=== PATIENT | male | born 1960 | race Two or more races ===

== ENCOUNTER 2025-03-07 08:53 | Outpatient (CLI) | payer MEDICARE, BC ==
[2025-03-07 11:05] LABS: PLATELET COUNT (AUTO) 180 K/uL (150-450); RED BLOOD CELL COUNT(AUTO) 4.76 MIL/uL (4.5-6.0); RED CELL DISTRIBUTION WIDTH 14.1 % (11.5-15.0); WHITE BLOOD COUNT (AUTO) 5.1 K/uL (4.3-11.0)
[2025-03-07 11:11] LABS: APPEARANCE,URINE CLEAR (CLEAR); BLOOD, URINE 2+ Ery/uL (NEGATIVE); LEUKOCYTE ESTERASE ,URINE NEGATIVE (NEGATIVE); NITRITE, URINE NEGATIVE (NEGATIVE); UGLUCOSE NEGATIVE (NEGATIVE)
[2025-03-07 11:12] LABS: ERYTHROCYTE SEDIMENTATION RATE 3 MM/HR (0-20)
[2025-03-07 11:24] LABS: URINE TOTAL PROTEIN 16.5 mg/dL (0-11.9)
[2025-03-07 11:27] LABS: ASPARTATE AMINOTRANSFERASE 20 U/L (15-37); CALCIUM, SERUM 8.9 mg/dL (8.5-10.1); CREATININE 1.2 mg/dL (0.6-1.3); PHOSPHORUS 3.0 mg/dL (2.5-4.9); SODIUM SERUM 142 mmol/L (136-145); TOTAL PROTEIN, SERUM 7.6 g/dL (6.4-8.2); UREA NITROGEN, BLOOD 17 mg/dL (7-18)
[2025-03-07 11:36] LABS: ADD URINE CULTURE YES; COARSE GRANULAR CASTS,URINE Few /LPF (None Seen); SQUAMOUS EPITHELIAL CELL,UR Few /HPF (None Seen)
[2025-03-08 05:10] LABS: VIT D, 25-HYDROXY 40.8 ng/mL (30.0-100.0)
[2025-03-08 08:11] LABS: ALBUMIN, URINE 25.4 ug/mL (Not Estab.); FOLIC ACID 6.9 ng/mL (>3.0); PTH, INTACT 18 pg/mL (15-65)
[2025-03-08 10:07] LABS: COMPLEMENT C3, SERUM 117 mg/dL (82-167); COMPLEMENT C4, SERUM 23 mg/dL (12-38); IMMUNOGLOBULIN A, SERUM 128 mg/dL (61-437); IMMUNOGLOBULIN M, SERUM 76 mg/dL (20-172)
== END 2025-03-07 23:59 | disposition home or self-care (01) ==
LOC: MSC 08:53
PROVIDERS: ATTEND Internal Medicine
DX: I12.9 Hypertensive chronic kidney disease with stage 1 through stage 4 chronic kidney disease, or unspecified chronic kidney disease (principal); N18.30 Chronic kidney disease, stage 3 unspecified; I95.9 Hypotension, unspecified; E78.5 Hyperlipidemia, unspecified; E66.9 Obesity, unspecified; M06.9 Rheumatoid arthritis, unspecified; M19.90 Unspecified osteoarthritis, unspecified site
CPT/HCPCS: 85025; 83735; 83036; 84100; 85652; 81001; 82746; 82607; 80053; 86140; 86038; 86160; 82306; 83970; 82784 ×3; 84165; 84166; 86334; 84156 ×2; 84155; G0463; 36415; 87086-TC